=== PATIENT | male | born 1985 | race Hispanic/Latino ===

== ENCOUNTER 2017-07-15 16:14 | Emergency (ER) | payer OTHER ==
[~2017-07-15] VITALS: Ht 170.2 cm; Wt 86.2 kg
[2017-07-15] MEDS ORDERED: NORCO 5-325 TA1 EACH PO (16:52)
== END 2017-07-15 17:15 | disposition home or self-care (01) ==
LOC: ED 16:14
DX: S92.355A Nondisplaced fracture of fifth metatarsal bone, left foot, initial encounter for closed fracture (principal); W22.8XXA Striking against or struck by other objects, initial encounter; Y99.0 Civilian activity done for income or pay
CPT/HCPCS: 73630; 96360; 99284